=== PATIENT | male | born 1985 | race Caucasian/White ===

== ENCOUNTER 2022-02-26 22:56 | Emergency (ER) | payer MEDICAID ==
[~2022-02-26] VITALS: Ht 182.9 cm; Wt 81.6 kg
--- NOTE | 2022-02-26 23:10 | NUR ---
BIBSELF C/O L FOOT POSSIBLY BROKEN S/P SLIP AND FALL. -THINNERS. PLACED IN BED 1. VITALS CHECKED.
[2022-02-26 23:15] VITALS: BP 137/73
[2022-02-26] MEDS ORDERED: HYDROCODONE/APAP 5/325MG TABLET PO ONE (23:30)
--- NOTE | 2022-02-26 23:58 | NUR ---
JUANCARLOS BROWNE ON THE PHONE WITH DR. KEE FOR ORTHO CONSULT.
[2022-02-27] MEDS ORDERED: HYDROCODONE/APAP 5/325MG TABLET ONE (00:01)
[2022-02-27] MEDS ORDERED: HYDR-4275 PO (00:07)
--- NOTE | 2022-02-27 00:13 | NUR ---
DR. PETERSON BROWNE'S PA CALLED BACK AND ADDED TO DO CT OF THE FOOT
--- NOTE | 2022-02-27 00:20 | NUR ---
BROUGHT PATIENT TO CT SCAN
--- NOTE | 2022-02-27 00:57 | NUR ---
PT IS BEING TAUGHT HOW TO USE CRUTCHES BY EMT
--- NOTE | 2022-02-27 01:40 | NUR ---
Patient discharged to home in stable condition. Written and verbal after care instructions given. Patient verbalizes understanding of instruction.
== END 2022-02-27 01:41 | disposition home or self-care (01) ==
LOC: ER 23:05
DX: S92.062A Displaced intraarticular fracture of left calcaneus, initial encounter for closed fracture (principal); W01.0XXA Fall on same level from slipping, tripping and stumbling without subsequent striking against object, initial encounter; Y93.89 Activity, other specified; Y92.89 Other specified places as the place of occurrence of the external cause; Y99.8 Other external cause status
CPT/HCPCS: 73630-TC; 73700-TC